=== PATIENT | female | born 1965 | race Caucasian/White ===

== ENCOUNTER → 2021-11-26 | Outpatient (CLI) | payer BC ==
[~2021-11-26] MED LIST: CLARITIN10 MG PO; CLEOCIN HCL300 MG PO; COZAAR25 MG PO; LEXAPRO10 MG PO; NORCO 5-325 TA1 EACH PO; TENORMIN 50 MG50 MG PO; VIT D PO
== END ==
LOC: MAMO 11-01 08:00
DX: Z12.31 Encounter for screening mammogram for malignant neoplasm of breast (principal)
CPT/HCPCS: 77063; 77067

== ENCOUNTER → 2021-11-27 | Day surgery (SDC) | payer BC | END | disposition home or self-care (01) | LOC: OR 06:25 | DX: Z12.11 Encounter for screening for malignant neoplasm of colon (principal); I10 Essential (primary) hypertension; F41.9 Anxiety disorder, unspecified; E66.3 Overweight; K57.30 Diverticulosis of large intestine without perforation or abscess without bleeding; K64.1 Second degree hemorrhoids; K62.89 Other specified diseases of anus and rectum; Z68.27 Body mass index [BMI] 27.0-27.9, adult; Z90.710 Acquired absence of both cervix and uterus; Z20.822 Contact with and (suspected) exposure to COVID-19 | CPT/HCPCS: J2001; J2704; J7040 ==